=== PATIENT | male | born 1935 | race Caucasian/White ===

== ENCOUNTER 2020-09-09 23:32 | Inpatient (IN) | payer MEDICARE, OTHER ==
[~2020-09-09 23:32] MED LIST: ACETAMINOPHEN325 MG PO; ASPIRIN CHEWABL81 MG PO; ASPIRIN EC81 MG PO; ASPIRIN81 MG PO; ATARAX25 MG PO; ATORVASTATIN CA10 MG PO; ATORVASTATIN CA20 MG PO; BACTRIM DS TAB1 EACH PO; BUMETANIDE1 MG PO; CARAFATE1 GM PO; CEFTIN250 MG PO; CERTAGEN1 EACH PO; CLEOCIN300 MG PO; COLACE100 MG PO; CYMBALTA 30MG C30 MG PO; CYMBALTA60 MG PO; DAILY MULTIPLE1 EAC1 PO; DESENEX85 GM TOP; DEXILANT60 MG PO; DIFLUCAN 100MG100 MG PO; DUONEB 2.5-0.5M1 AMP INH; ENEMA133 M1 PR; FEOSOL325 MG PO; FLOMAX 0.4 MG0.4 MG PO; FLOMAX0.4 MG PO; IMDUR 30MG TABL30 MG PO; LACTINEX1 EACH PO; LASIX20 MG PO; LASIX40 MG PO; LAXATIVE OF CHOICE; LAXATIVE SUPPOS10 MG PR; LIPITOR20 MG PO; LIPITOR80 MG PO; LOPRESSOR25 MG PO; LOPRESSOR50 MG PO; LYRICA 50MG CAP50 MG PO; LYRICA150 MG PO; METOPROLOL TART50 MG PO; MILK OF MA400 MG/5 M PO; MILK OF MAGNESIA PO; MIRALAX17 GM PO; MLYLANTA/MAALOX30 ML PO; NEURONTIN 400M400 MG PO; NEURONTIN300 MG PO; NEURONTIN400 MG PO; NIFEREX TABLET1 EACH PO; NIFEREX150 MG PO; NORCO 5-325 TA1 EACH PO; NORCO 5/3251 EACH PO; NORVASC5 MG PO; OXYCODONE-ACET1 EAC1 PO; PANTOPRAZOLE SO40 MG PO; PEPCID20 MG PO; PERCOCET 5-3251 EACH PO; PERCOCET 7.5/321 TAB PO; PROTONIX 40MG T40 MG PO; SENNA PLUS TAB1 EACH PO; SENOKOT8.6 MG PO; TEMOVATE 0.05%45 GM TOP; TETRACYCLINE H250 MG PO; TYLENOL325 M1 PO; VENLAFAXINE HCL75 MG PO; VIBRAMYCIN100 MG PO; ZESTRIL5 M1 PO; ZESTRIL5 MG PO
[2020-09-10 00:14] LABS: BASOPHIL 0.4 % (0-2); EOSINOPHIL 0.1 % (0-7); HGB 9.5 g/dl (13.2-18.0); LYMPHOCYTE 8.9 % (15-48); MCH 31.4 pg (25.0-31.0); MCHC 32.8 g/dL (32.0-36.0); MCV 95.7 fL (78.0-100.0); MONOCYTE 8.4 % (0-12); MPV 11.3 fL (6.0-9.5); NEUTROPHIL 81.6 % (41-80); NRBC 0; PLT 259 K/uL (150-400); RBC 3.03 M/uL (4.70-6.00); RDW 13.2 % (11.5-14.0)
[2020-09-10 00:44] LABS: ALBUMIN 2.6 g/dL (3.4-5.0); BILIRUBIN - TOTAL 0.6 mg/dL (0.2-1.0); BUN/CREAT RATIO (CALC) 20.3 RATIO; C-REACTIVE PROTEIN 4.4 mg/dL (<=0.90); CREATININE 1.82 mg/dL (0.67-1.17); GLOBULIN (CALCULATION) 5.1 g/dL; POTASSIUM 5.6 mmol/L (3.5-5.1); TOTAL PROTEIN 7.7 g/dL (6.4-8.2)
[2020-09-10 00:50] LABS: CORONAVIRUS 2019 SARS-COV-2 NEGATIVE (NEGATIVE); INFLUENZA A NAA NEGATIVE (NEGATIVE)
[2020-09-10 00:53] LABS: LACTIC ACID 1.4 mmol/L (0.4-1.9)
[2020-09-10 00:56] LABS: PRO-BNP 24525 pg/mL (<450)
[2020-09-10 01:57] LABS: BILIRUBIN NEGATIVE (NEGATIVE); BLOOD NEGATIVE Ery/uL (NEGATIVE); CLARITY CLEAR (CLEAR); COLOR YELLOW (YELLOW); GLUCOSE (U) NORMAL (NORMAL); LEUKOCYTES NEGATIVE Leu/uL (NEGATIVE); NITRITE NEGATIVE (NEGATIVE); PROTEIN NEGATIVE (NEGATIVE); SPECIFIC GRAVITY 1.015 (1.001-1.030); UROBILINOGEN 0.2 mg/dL (0.2-1.0); pH 6.5 (5.0-9.0)
--- NOTE | 2020-09-10 06:13 | NUR ---
0600 K KAREEM NARANJO NOTIFIED PT IKN ROOM 217.
--- NOTE | 2020-09-10 06:14 | NUR ---
0600 PT STATED MEDICATION LIST GIVEN TO NURSE IN ED. UNABLE TO FIND MEDICATION LIST IN CHART. WILL CALL AND GET HOME MED LIST FROM [facility] WHEN IT OPENS UP.
[2020-09-10 07:39] LABS: ALBUMIN 2.7 g/dL (3.4-5.0); BILIRUBIN - TOTAL 0.6 mg/dL (0.2-1.0); BUN/CREAT RATIO (CALC) 20.9 RATIO; CREATININE 1.82 mg/dL (0.67-1.17); GLOBULIN (CALCULATION) 4.9 g/dL; POTASSIUM 4.7 mmol/L (3.5-5.1); TOTAL PROTEIN 7.6 g/dL (6.4-8.2)
[2020-09-10] MEDS ORDERED: CYMBALTA 30MG C30 MG PO (13:05)
[2020-09-10] MEDS ORDERED: FLOMAX0.4 MG PO (13:07)
[2020-09-10] MEDS ORDERED: LASIX20 MG PO (13:07)
[2020-09-10] MEDS ORDERED: ISOSORBIDE MONO60 MG PO (13:07)
[2020-09-10] MEDS ORDERED: FEOSOL325 MG PO (13:08)
[2020-09-10] MEDS ORDERED: LOPRESSOR50 MG PO (13:08)
[2020-09-11 06:39] LABS: BASOPHIL 0.4 % (0-2); EOSINOPHIL 0 % (0-7); HCT 29.8 % (42.0-52.0); HGB 9.6 g/dl (13.2-18.0); LYMPHOCYTE 14.8 % (15-48); MCH 30.8 pg (25.0-31.0); MCHC 32.2 g/dL (32.0-36.0); MCV 95.5 fL (78.0-100.0); MONOCYTE 11.9 % (0-12); MPV 11.1 fL (6.0-9.5); NEUTROPHIL 72.2 % (41-80); NRBC 0; PLT 254 K/uL (150-400); RBC 3.12 M/uL (4.70-6.00); RDW 12.9 % (11.5-14.0); WBC 10.6 K/uL (4.0-10.5)
[2020-09-11 07:29] LABS: ALBUMIN 2.6 g/dL (3.4-5.0); BILIRUBIN - TOTAL 0.5 mg/dL (0.2-1.0); CREATININE 2.05 mg/dL (0.67-1.17); POTASSIUM 4.4 mmol/L (3.5-5.1); TOTAL PROTEIN 6.6 g/dL (6.4-8.2)
--- NOTE | 2020-09-11 10:05 | NUR ---
09/11/20 Mr. Jauregui lives alone. He is not currently followed by . Mr. Jauregui has a lift chair, wc, hospital bed, 3in1, sincere lift, and s. stool. His so, Barrie Jauregui visits the home daily after work to attend to hygience. - [facility]elita has recommended snf services. Mr. Jauregui is interested in [facility] where he has previously been. He chose not to make 2nd and 3rd choices for possible skilled care. - Barrie Jauregui, son, said he is in support of the placement temporarily. - [facility] is reviewing the referral.
[2020-09-12 06:41] LABS: HCT 26.5 % (42.0-52.0); HGB 8.7 g/dl (13.2-18.0); MCH 31.2 pg (25.0-31.0); MCHC 32.8 g/dL (32.0-36.0); MPV 11.1 fL (6.0-9.5); RBC 2.79 M/uL (4.70-6.00); WBC 9.5 K/uL (4.0-10.5)
[2020-09-12 07:07] LABS: BUN/CREAT RATIO (CALC) 21.6 RATIO; CREATININE 2.27 mg/dL (0.67-1.17); POTASSIUM 4.1 mmol/L (3.5-5.1)
--- NOTE | 2020-09-13 12:49 | NUR ---
09/13/20 [facility], Avelina Poon, will accept patient today. They can administer the IV antibiotics with a PIC line, Please call report to: [phone] and fax DS to: [phone]. Report given to MS CLAIR Hanson and Dr. Morrell.
--- NOTE | 2020-09-13 18:08 | NUR ---
1735 MIDLINE ORDERED FOR ANTIBIOTICS, PROCEDURE EXPLAINED TO PATIENT, PATIENT AGREED TO IT. PT LEFT ARM WAS PREPPED AND DRAPED IN STERILE FASHION. THE LUE BASILIC VEIN WAS VISUALIZED USING THE [employer] 6 US MACHINE. A 21 GAUGE GUIDE NEEDLE WAS USED. GOOD BLOOD RETURN WAS NOTED. THE GUIDE WIRE THREADED EASILY. THE NEEDLE WAS REMOVED AND THE MIDLINE CATHETER WAS PLACED OVER THE WIRE. THE WIRE AND SHEATH WERE REMOVED. GOOD BLOOD RETURN WAS NOTED. A CONNECTOR WAS FLUSHED AND PLACED AND A BIOPATCH WAS PLACED ON THE TOP OF THE INSERTION SITE, A STERILE TEGADERM WAS PLACED OVER THE MIDLINE CATHETER. PT TOLERATED THE PROCEDURE WELL. PT HAS A 20 G 10 CM POWERGLIDE MIDLINE CATHETER. GOOD FOR 29 DAYS. THIS IS NOT A CENTRAL LINE. REPORT WAS GIVEN TO SUSANA YODER R.N. THE PATIENT'S BED WAS LOWERED TO THE FLOOR AND 2 SIDERAILS WERE UP BEFORE. CALL LIGHT WAS WITHIN REACH.
[2020-09-14 05:45] LABS: HCT 25.5 % (42.0-52.0); HGB 8.3 g/dl (13.2-18.0); MCHC 32.5 g/dL (32.0-36.0); MCV 95.1 fL (78.0-100.0); MPV 11.3 fL (6.0-9.5); RBC 2.68 M/uL (4.70-6.00); RDW 12.8 % (11.5-14.0); WBC 7.2 K/uL (4.0-10.5)
[2020-09-14 06:32] LABS: BUN/CREAT RATIO (CALC) 24.5 RATIO; CREATININE 2.33 mg/dL (0.67-1.17); POTASSIUM 4.3 mmol/L (3.5-5.1)
--- NOTE | 2020-09-14 15:16 | NUR ---
THIS AM WHEN TRYING TO START ANTIBODICS THE MIDLINE WOULD NOT FLUSH. TRIED SALINE AND HEPARIN BUT TO NO SUCCESS. INFORMED MD AND PLACED A IV IN THE RIGHT AC #20 USING US, WITH THE HELP OF DR BURTON.
--- NOTE | 2020-09-14 17:30 | NUR ---
AT 1645 DR BURTON ASKED FOR ME TO HELP HIM THE THE MIDLINE THAT WAS NOT FLUSHING. HE WAS GOING TO PLACE A NEW MIDLINE BUT DECIDED TO LOOK AT THE OTHER ONE AND SEE WHAT THE ISSUE WAS. DR BURTON TOOK THE DRESSING OFF AND PULLED BACK ON THE LINE AND HE WAS ABLE TO GET BLOOD RETURN AND TO FLUSH. HE SUTURED THE LINE TO THE PATIENT AND A NEW DRESSING WAS PLACE ON THE AREA. PATIENT TOLERATED THE PROCEDURE WELL AND LINE IS NOW WORKING PROPERLY
[2020-09-15 05:49] LABS: HCT 26.4 % (42.0-52.0); HGB 8.6 g/dl (13.2-18.0); MCH 30.7 pg (25.0-31.0); MCHC 32.6 g/dL (32.0-36.0); MCV 94.3 fL (78.0-100.0); MPV 11.3 fL (6.0-9.5); RBC 2.8 M/uL (4.70-6.00); RDW 13.1 % (11.5-14.0); WBC 7.6 K/uL (4.0-10.5)
[2020-09-15 06:10] LABS: BUN/CREAT RATIO (CALC) 29.1 RATIO; CREATININE 2.13 mg/dL (0.67-1.17); POTASSIUM 4.4 mmol/L (3.5-5.1)
[2020-09-16] MEDS ORDERED: AQUAPHOR WITH N50 GM TOP (14:01)
[2020-09-16] MEDS ORDERED: HEPARIN 3010 UNIT/1 IV (14:01)
[2020-09-16] MEDS ORDERED: ZYVOX RTU600 MG/300 IV (14:01)
[2020-09-16] MEDS ORDERED: ACETAMINOPHEN325 MG PO (14:01)
[2020-09-16] MEDS ORDERED: PROVENTIL HFA6.7 GM INH (14:01)
[2020-09-16] MEDS ORDERED: NORMAL SALINE F10 ML IVP (14:01)
--- NOTE | 2020-09-16 14:19 | NUR ---
09/16/20 Avelina Poon, [facility], was informed that patient will be discharged today.
== END 2020-09-16 18:10 | DRG 291 ==
LOC: FER 23:32 → FMS 09-10 03:39
PROVIDERS: Emergency Medicine Emergency Medical Services; Hospitalist; Nurse Practitioner; ADMIT Internal Medicine
PROC: 05HY33Z Insertion of Infusion Device into Upper Vein, Percutaneous Approach (ICD-10-PCS; principal; 2020-09-13)
DX: I13.0 Hypertensive heart and chronic kidney disease with heart failure and stage 1 through stage 4 chronic kidney disease, or unspecified chronic kidney disease (principal); I50.43 Acute on chronic combined systolic (congestive) and diastolic (congestive) heart failure; J96.01 Acute respiratory failure with hypoxia; N17.9 Acute kidney failure, unspecified; R78.81 Bacteremia; Z16.24 Resistance to multiple antibiotics; N13.8 Other obstructive and reflux uropathy; I25.10 Atherosclerotic heart disease of native coronary artery without angina pectoris; E66.9 Obesity, unspecified; Z20.822 Contact with and (suspected) exposure to COVID-19; N18.30 Chronic kidney disease, stage 3 unspecified; E87.5 Hyperkalemia; R23.4 Changes in skin texture; I87.8 Other specified disorders of veins; D50.9 Iron deficiency anemia, unspecified; J44.9 Chronic obstructive pulmonary disease, unspecified; G62.9 Polyneuropathy, unspecified; D63.1 Anemia in chronic kidney disease; I73.9 Peripheral vascular disease, unspecified; E03.9 Hypothyroidism, unspecified; N40.1 Benign prostatic hyperplasia with lower urinary tract symptoms; L89.622 Pressure ulcer of left heel, stage 2; Z89.611 Acquired absence of right leg above knee; Z95.1 Presence of aortocoronary bypass graft; Z98.890 Other specified postprocedural states; Z88.1 Allergy status to other antibiotic agents; Z88.5 Allergy status to narcotic agent; Z91.041 Radiographic dye allergy status; Z87.11 Personal history of peptic ulcer disease; Z90.49 Acquired absence of other specified parts of digestive tract; Z95.820 Peripheral vascular angioplasty status with implants and grafts; Z87.891 Personal history of nicotine dependence; Z88.0 Allergy status to penicillin; Z88.8 Allergy status to other drugs, medicaments and biological substances
CPT/HCPCS: 36415; 71045; 80048; 80053; 81003; 83036; 83605; 83880; 84145; 84484; 85025; 86140; 87040; 87077; 87088; 87186; 93005; 94640; 94664; 97162; 97167; 97530-GP; 97535; C1751; G0378; J1642; J1940; J2020; J7050; U0002

== ENCOUNTER 2021-07-27 11:25 | Emergency (ER) | payer MEDICARE, OTHER ==
[~2021-07-27 11:25] MED LIST changes: +AQUAPHOR WITH N50 GM TOP; +HEPARIN 3010 UNIT/1 IV; +ISOSORBIDE MONO60 MG PO; +NORMAL SALINE F10 ML IVP; +PROVENTIL HFA6.7 GM INH; +ZYVOX RTU600 MG/300 IV
[2021-07-27 12:51] LABS: BASOPHIL 0.6 % (0-2); EOSINOPHIL 0 % (0-7); HCT 32.1 % (42.0-52.0); MCH 30.7 pg (25.0-31.0); MCHC 31.2 g/dL (32.0-36.0); MCV 98.5 fL (78.0-100.0); MPV 11.8 fL (6.0-9.5); NEUTROPHIL 67.8 % (41-80); NRBC 0; PLT 155 K/uL (150-400); RBC 3.26 M/uL (4.70-6.00); RDW 14.2 % (11.5-14.0); WBC 7.9 K/uL (4.0-10.5)
[2021-07-27 13:09] LABS: ALBUMIN 2.9 g/dL (3.4-5.0); BILIRUBIN - TOTAL 0.3 mg/dL (0.2-1.0); BUN/CREAT RATIO (CALC) 23.2 RATIO; CREATININE 2.07 mg/dL (0.67-1.17); GLOBULIN (CALCULATION) 4.5 g/dL; TOTAL PROTEIN 7.4 g/dL (6.4-8.2)
[2021-07-27 13:21] LABS: CKMB 0.8 ng/mL (0.0-3.6)
[2021-07-27 13:28] LABS: LACTIC ACID 0.9 mmol/L (0.4-1.9)
[2021-07-27 14:10] LABS: BILIRUBIN NEGATIVE (NEGATIVE); BLOOD TRACE-INTACT Ery/uL (NEGATIVE); CLARITY CLEAR (CLEAR); COLOR YELLOW (YELLOW); GLUCOSE (U) NORMAL (NORMAL); LEUKOCYTES NEGATIVE Leu/uL (NEGATIVE); NITRITE NEGATIVE (NEGATIVE); PROTEIN TRACE (LOW) mg/dL (NEGATIVE); SPECIFIC GRAVITY 1.015 (1.001-1.030); UROBILINOGEN 0.2 mg/dL (0.2-1.0); pH 6.5 (5.0-9.0)
[2021-07-27 14:27] LABS: URINARY RBC RARE
[2021-07-27] MEDS ORDERED: MIRALAX 238GM238 GM PO (18:33)
[2021-07-27] MEDS ORDERED: COLACE100 MG PO (18:33)
== END 2021-07-28 17:59 | disposition home or self-care (01) ==
LOC: FER 11:25
PROVIDERS: Physician Assistant
DX: K56.41 Fecal impaction (principal); N18.9 Chronic kidney disease, unspecified; I50.9 Heart failure, unspecified; Z88.0 Allergy status to penicillin; Z88.6 Allergy status to analgesic agent; Z88.8 Allergy status to other drugs, medicaments and biological substances; Z88.1 Allergy status to other antibiotic agents; Z88.5 Allergy status to narcotic agent; Z91.041 Radiographic dye allergy status; Z87.891 Personal history of nicotine dependence
CPT/HCPCS: 36415; 71045; 80053; 81001; 82553; 83605; 83690; 83880; 84145; 84484; 85025; 85379; 93005; 93971; 96372

== ENCOUNTER 2021-08-28 22:57 | Emergency (ER) | payer MEDICARE, OTHER ==
[~2021-08-28 22:57] MED LIST changes: +MIRALAX 238GM238 GM PO
[2021-08-28 23:34] LABS: BASOPHIL 0.4 % (0-2); EOSINOPHIL 0 % (0-7); HCT 27.8 % (42.0-52.0); HGB 8.6 g/dl (13.2-18.0); LYMPHOCYTE 10.6 % (15-48); MCH 30.7 pg (25.0-31.0); MCHC 30.9 g/dL (32.0-36.0); MCV 99.3 fL (78.0-100.0); MONOCYTE 8.2 % (0-12); MPV 11.1 fL (6.0-9.5); NEUTROPHIL 80.3 % (41-80); NRBC 0; PLT 172 K/uL (150-400); RDW 13.7 % (11.5-14.0); WBC 10.8 K/uL (4.0-10.5)
[2021-08-28 23:55] LABS: BUN/CREAT RATIO (CALC) 28.4 RATIO; CREATININE 1.94 mg/dL (0.67-1.17); MAGNESIUM 2.1 mg/dL (1.8-2.4); POTASSIUM 4.8 mmol/L (3.5-5.1)
[2021-08-29 00:06] LABS: LACTIC ACID 1.5 mmol/L (0.4-1.9)
[2021-08-29 01:15] LABS: BILIRUBIN NEGATIVE (NEGATIVE); BLOOD NEGATIVE Ery/uL (NEGATIVE); CLARITY CLEAR (CLEAR); COLOR YELLOW (YELLOW); GLUCOSE (U) NORMAL (NORMAL); LEUKOCYTES NEGATIVE Leu/uL (NEGATIVE); NITRITE NEGATIVE (NEGATIVE); PROTEIN TRACE (LOW) mg/dL (NEGATIVE); SPECIFIC GRAVITY 1.015 (1.001-1.030); UROBILINOGEN 0.2 mg/dL (0.2-1.0)
[2021-08-29 01:30] LABS: CORONAVIRUS 2019 SARS-COV-2 NEGATIVE (NEGATIVE)
[2021-08-29 01:31] LABS: INFLUENZA A NAA NEGATIVE (NEGATIVE)
[2021-08-29 08:57] LABS: INR 1.14 (0.9-1.2); PTT 33.9 SECONDS (24.4-34.7)
== END 2021-08-29 11:05 | disposition other institution (70) ==
LOC: FER 22:57
PROVIDERS: Internal Medicine
DX: I20.9 Angina pectoris, unspecified (principal); D64.9 Anemia, unspecified; I11.0 Hypertensive heart disease with heart failure; I50.9 Heart failure, unspecified; Z88.0 Allergy status to penicillin; Z88.6 Allergy status to analgesic agent; Z88.5 Allergy status to narcotic agent; Z88.1 Allergy status to other antibiotic agents; Z91.041 Radiographic dye allergy status; Z20.822 Contact with and (suspected) exposure to COVID-19; Z28.310 Unvaccinated for COVID-19
CPT/HCPCS: 36415; 71045; 71250; 80048; 81003; 83605; 83735; 83880; 84145; 84484; 85025; 85610; 85730; 87040; 93005; 94640; 96374; U0002

== ENCOUNTER 2021-09-27 00:22 | Emergency (ER) | payer MEDICARE, OTHER ==
[2021-09-27 01:22] LABS: BASOPHIL 0.4 % (0-2); EOSINOPHIL 0 % (0-7); HCT 27.6 % (42.0-52.0); HGB 8.4 g/dl (13.2-18.0); LYMPHOCYTE 12.7 % (15-48); MCH 30.3 pg (25.0-31.0); MCHC 30.4 g/dL (32.0-36.0); MCV 99.6 fL (78.0-100.0); MONOCYTE 8.6 % (0-12); MPV 11.1 fL (6.0-9.5); NEUTROPHIL 77.1 % (41-80); NRBC 0; PLT 179 K/uL (150-400); RBC 2.77 M/uL (4.70-6.00); RDW 14.4 % (11.5-14.0)
[2021-09-27 01:49] LABS: INR 1.13 (0.9-1.2); PROTHROMBIN TIME 13.9 SECONDS (11.8-13.4); PTT 32.5 SECONDS (24.4-34.7)
[2021-09-27 01:50] LABS: D-DIMER 2.02 ug/mLFEU (0.00-0.41)
[2021-09-27 01:55] LABS: ALBUMIN 2.7 g/dL (3.4-5.0); BILIRUBIN - TOTAL 0.5 mg/dL (0.2-1.0); BUN/CREAT RATIO (CALC) 22.7 RATIO; CREATININE 1.85 mg/dL (0.67-1.17); GLOBULIN (CALCULATION) 4.1 g/dL; POTASSIUM 4.4 mmol/L (3.5-5.1); TOTAL PROTEIN 6.8 g/dL (6.4-8.2)
== END 2021-09-27 08:28 | disposition other institution (70) ==
LOC: FER 00:22
PROVIDERS: Emergency Medicine
DX: R07.89 Other chest pain (principal); I25.10 Atherosclerotic heart disease of native coronary artery without angina pectoris; I50.9 Heart failure, unspecified; Z95.1 Presence of aortocoronary bypass graft; Z88.0 Allergy status to penicillin; Z88.1 Allergy status to other antibiotic agents; Z88.5 Allergy status to narcotic agent; Z88.8 Allergy status to other drugs, medicaments and biological substances; Z91.041 Radiographic dye allergy status; Z79.82 Long term (current) use of aspirin; Z28.310 Unvaccinated for COVID-19
CPT/HCPCS: 36415; 71045; 80053; 83605; 83880; 84145; 84484; 85025; 85379; 85610; 85730; 87040; 93005; 96372; J0692; J1650; J1940

== ENCOUNTER 2022-01-22 20:36 | Inpatient (IN) | payer MEDICARE, OTHER ==
[~2022-01-22] VITALS: Ht 190.5 cm; Wt 126.1 kg
[2022-01-22 21:09] LABS: BASOPHIL 0.2 % (0-2); EOSINOPHIL 0.1 % (0-7); HCT 31.3 % (42.0-52.0); LYMPHOCYTE 12.5 % (15-48); MCH 31.3 pg (25.0-31.0); MCHC 31.9 g/dL (32.0-36.0); MCV 98.1 fL (78.0-100.0); MONOCYTE 8.6 % (0-12); MPV 11.8 fL (6.0-9.5); NRBC 0; PLT 166 K/uL (150-400); RBC 3.19 M/uL (4.70-6.00); RDW 15.5 % (11.5-14.0); WBC 12.9 K/uL (4.0-10.5)
[2022-01-22 21:14] LABS: INR 1.15 (0.9-1.2); PROTHROMBIN TIME 14.4 SECONDS (11.9-13.9); PTT 26.5 SECONDS (24.9-34.6)
[2022-01-22 21:20] LABS: ALBUMIN 2.9 g/dL (3.4-5.0); BILIRUBIN - TOTAL 0.5 mg/dL (0.2-1.0); CREATININE 1.87 mg/dL (0.67-1.17); GLOBULIN (CALCULATION) 4.9 g/dL; TOTAL PROTEIN 7.8 g/dL (6.4-8.2)
[2022-01-22 22:39] LABS: CORONAVIRUS 2019 SARS-COV-2 NEGATIVE (NEGATIVE); INFLUENZA A NAA NEGATIVE (NEGATIVE)
[2022-01-23] MEDS ORDERED: ASPIRIN EC81 MG PO (04:38)
[2022-01-23] MEDS ORDERED: LIPITOR40 MG PO (04:39)
[2022-01-23] MEDS ORDERED: BUMEX1 MG PO (04:40)
[2022-01-23] MEDS ORDERED: PHOSLO667 MG PO (04:42)
[2022-01-23] MEDS ORDERED: HYDRALAZINE25 MG PO (04:43)
[2022-01-23] MEDS ORDERED: FERREX 150150 MG PO (04:43)
[2022-01-23 06:29] LABS: BASOPHIL 0.4 % (0-2); EOSINOPHIL 0 % (0-7); HCT 27.1 % (42.0-52.0); HGB 8.7 g/dl (13.2-18.0); LYMPHOCYTE 12.6 % (15-48); MCH 31.5 pg (25.0-31.0); MCHC 32.1 g/dL (32.0-36.0); MCV 98.2 fL (78.0-100.0); MONOCYTE 9.9 % (0-12); NEUTROPHIL 76.2 % (41-80); NRBC 0; PLT 178 K/uL (150-400); RBC 2.76 M/uL (4.70-6.00); RDW 15.7 % (11.5-14.0); WBC 12.3 K/uL (4.0-10.5)
[2022-01-23 07:10] LABS: ALBUMIN 2.6 g/dL (3.4-5.0); BILIRUBIN - TOTAL 0.5 mg/dL (0.2-1.0); BUN/CREAT RATIO (CALC) 29.5 RATIO; CREATININE 1.83 mg/dL (0.67-1.17); GLOBULIN (CALCULATION) 4.6 g/dL; POTASSIUM 3.9 mmol/L (3.5-5.1); TOTAL PROTEIN 7.2 g/dL (6.4-8.2)
--- NOTE | 2022-01-23 12:53 | NUR ---
01/23/22 Mr. Jauregui briefly participated in an assessment and then would no longer participate. An assessment was completed with his son, Barrie Jauregui. Mr. Jauregui lives alone. His son comes to the home daily to provide care. He Has a hospital bed, lift chair, sincere lift, wc, 3in1, and s. stool. A HH has followed in the past. Barrie Jauregui declined services stating he is providing skin care. - PCP is the office of [facility]. Barrie Jauregui requested a list of homebound services. He was referred to [facility] and [facility].
--- NOTE | 2022-01-24 05:32 | NUR ---
FLIGHT OPERATIONS MANAGER WENT INTO ROOM TO DRAW MORNING LABS. RN HEARD LOUD "NO" AND FLIGHT OPERATIONS MANAGER IMMEDIATELY LEAVING ROOM. FLIGHT OPERATIONS MANAGER STATES SHE WENT TO STICK THE PATIENT AND HE ATTEMPTED TO KARATE CHOP HER, SO SHE LEFT WITHOUT GETTING THE LABS. WILL ATTEMPT AGAIN AT A LATER TIME.
--- NOTE | 2022-01-25 07:57 | NUR ---
PT REFUSED TO LET MARINE [employer] TECHNICIAN DRAW LABS THIS AM- LET NURSE ATTEMPT 1 X UNABLE TO OBTAIN, , FINGER STICK WAS COMPLETED BUT LAB STATED THAT BMP WAS NO GOOD
--- NOTE | 2022-01-25 13:30 | NUR ---
PATIENT DISCHARGED TO HOME VIA AMBULANCE. IV, M[facility] AND MONITOR DCD. INSTRUCTIONS GIVEN VERBALIZED UNDERSTANDING. CONFIRMED WITH SON THAT NO SERVICES WERE NECESSAARY. SON CONFIRMED THAT HE HAD INFORMATION FROM [employer].
== END 2022-01-25 13:05 | disposition home or self-care (01) | DRG 291 ==
LOC: FER 20:36 → FTCU 01-23 02:18
PROVIDERS: Emergency Medicine; Nurse Practitioner; ADMIT Allergy & Immunology Allergy
DX: I13.0 Hypertensive heart and chronic kidney disease with heart failure and stage 1 through stage 4 chronic kidney disease, or unspecified chronic kidney disease (principal); I50.23 Acute on chronic systolic (congestive) heart failure; J96.21 Acute and chronic respiratory failure with hypoxia; J44.1 Chronic obstructive pulmonary disease with (acute) exacerbation; N18.30 Chronic kidney disease, stage 3 unspecified; I25.10 Atherosclerotic heart disease of native coronary artery without angina pectoris; R77.8 Other specified abnormalities of plasma proteins; Z20.822 Contact with and (suspected) exposure to COVID-19; Z95.2 Presence of prosthetic heart valve; I25.2 Old myocardial infarction; Z95.1 Presence of aortocoronary bypass graft; E78.5 Hyperlipidemia, unspecified; Z82.49 Family history of ischemic heart disease and other diseases of the circulatory system; E86.0 Dehydration; E03.9 Hypothyroidism, unspecified; H91.90 Unspecified hearing loss, unspecified ear; N40.0 Benign prostatic hyperplasia without lower urinary tract symptoms; F41.9 Anxiety disorder, unspecified; F32.A Depression, unspecified; K21.9 Gastro-esophageal reflux disease without esophagitis; D63.1 Anemia in chronic kidney disease; Z90.49 Acquired absence of other specified parts of digestive tract; Z88.0 Allergy status to penicillin; Z88.5 Allergy status to narcotic agent; Z79.899 Other long term (current) drug therapy; Z79.82 Long term (current) use of aspirin; K59.09 Other constipation; Z28.310 Unvaccinated for COVID-19; S31.829D Unspecified open wound of left buttock, subsequent encounter; S31.819D Unspecified open wound of right buttock, subsequent encounter; S91.105D Unspecified open wound of left lesser toe(s) without damage to nail, subsequent encounter; S91.104D Unspecified open wound of right lesser toe(s) without damage to nail, subsequent encounter
CPT/HCPCS: 36415; 71045; 80053; 83880; 84145; 84484; 85025; 85610; 85730; 93005; 94640; 94760; 97166; U0002